=== PATIENT | female | born 1985 | race Asian ===

== ENCOUNTER 2021-05-25 23:01 | Emergency (ER) | payer BC, SELFPAY ==
[~2021-05-25] VITALS: Ht 149.9 cm; Wt 56.7 kg
[2021-05-26 00:03] VITALS: BP_SYST 143
--- NOTE | 2021-05-26 00:03 | NUR ---
Patient came in to the ER with chief complaint of cough and congestion. Patient was given Z-Conor without any improvements. Patient has been coughing for a week, denies chest pain. Patient is fully vaccinated. Patient denies any shortness of breath, no fever or chills. Patient coughs when she takes in a deep breath, cough is dry. Patient respirations even unlabored.
--- NOTE | 2021-05-26 00:06 | NUR ---
ER in triage examining patient.
[2021-05-26] MEDS ORDERED: MED4 PO (01:11)
[2021-05-26 01:17] VITALS: BP_SYST 138
--- NOTE | 2021-05-26 01:17 | NUR ---
Patient given written and verbal discharge instructions by Dr Prabhakar and verbalizes understanding. ER MD discussed with patient the results and treatment provided. Patient in stable condition. ID arm band removed. Rx of Medrol sent to pharmacy of choice. Patient educated on pain management and to follow up with PMD. Pain Scale 0/10. Opportunity for questions provided and answered by Dr Prabhakar.
== END 2021-05-26 01:17 | disposition home or self-care (01) ==
LOC: SED 23:01
DX: J45.909 Unspecified asthma, uncomplicated (principal); Z79.899 Other long term (current) drug therapy; Z20.822 Contact with and (suspected) exposure to COVID-19
CPT/HCPCS: 36415; 71045; 99284